=== PATIENT | male | born 1960 | race Two or more races ===

== ENCOUNTER 2018-06-10 06:44 | Inpatient (IN) | payer OTHER, MEDICAID ==
[~2018-06-10] VITALS: Ht 172.7 cm; Wt 103.2 kg
[2018-06-10] VITALS (8 sets, daily range): BP systolic 103–131; BP diastolic 56–75
[2018-06-10] MEDS ORDERED: ATOR40TA70 MT (08:10)
[2018-06-10] MEDS ORDERED: METO-539 PO (08:10)
[2018-06-10] MEDS ORDERED: ASPI-1159 MT (08:10)
[2018-06-10] MEDS ORDERED: IODIXANOL 320MG/ML 100 ML BOTTLE IV ONE ×2 (08:18→09:35)
[2018-06-10] MEDS ORDERED: LIDOCAINE HCL 1% 20ML VIAL (Pyxis) INJ ONE (08:18)
[2018-06-10] MEDS ORDERED: MIDAZOLAM HCL 2 MG/2 ML VIAL ONE ×2 (08:25→09:10)
[2018-06-10] MEDS ORDERED: FENTANYL CITRATE/PF 50MCG/ML 2ML VIAL ONE (08:25)
[2018-06-10] MEDS ORDERED: IOHEXOL-300 100 ML BOTTLE ONE (09:08)
[2018-06-10] MEDS ORDERED: ASPIRIN 325MG TABLET ONE (10:12)
[2018-06-10] MEDS ORDERED: CLOPIDOGREL 75MG TABLET ONE (10:12)
[2018-06-10] MEDS ORDERED: ONDANSETRON HCL 4MG/2ML INJ IV PRN (10:15)
[2018-06-10] MEDS ORDERED: ATROPINE SULFATE 1MG/10ML SYR IV PRN (10:15)
[2018-06-10] MEDS ORDERED: NICARDIPINE 100MCG/ML 10ML VIAL (CATH LAB) IV ONE (14:39)
[2018-06-10] MEDS ORDERED: HEPARIN SODIUM 1,000 UNIT/1ML VIAL IV ONE (14:39)
[2018-06-10] MEDS ORDERED: NITROGLYCERIN 50MCG/ML 10ML VIAL (CATH LAB) IV ONE (14:39)
[2018-06-10] MEDS: METOPROLOL TARTRATE 25MG TABLET PO SCH (20:44)
[2018-06-10] MEDS ORDERED: ATORVASTATIN CALCIUM 40MG TABLET PO SCH (21:00)
[2018-06-10] MEDS: ACETAMINOPHEN 325MG TABLET PO PRN (23:46)
[2018-06-11] VITALS (7 sets, daily range): BP systolic 95–147; BP diastolic 50–91
[2018-06-11 06:48] LABS: BASOPHILS % 0.5 % (0.0-2.0); HEMATOCRIT. 45.6 % (42.0-52.0); HEMOGLOBIN. 15.8 g/dL (14.0-18.0); LYMPHOCYTES % 15.5 % (20.0-50.0); MEAN CORPUSCULAR HEMOGLOBIN 30.9 pg (28.0-32.0); MEAN CORPUSCULAR VOLUME 89.1 fL (80.0-94.0); MEAN PLATELET VOLUME 8.5 fl (7.4-10.4); MONOCYTES % 8.1 % (2.0-8.0); NEUTROPHILS % 73.9 % (40.0-76.0); PLATELET 144 x1000/uL (130-400); RED BLOOD CELL COUNT 5.11 mill/uL (4.7-6.1); RED CELL DISTRIBUTION WIDTH 12.6 % (11.6-14.6)
[2018-06-11 06:58] LABS: CHLORIDE 108 mEq/L (98-107)
[2018-06-11 07:07] LABS: LDL CHOLESTEROL 80 mg/dL (5-100)
[2018-06-11 07:09] LABS: HDL CHOLESTEROL 36 mg/dL (40-59)
[2018-06-11] MEDS ORDERED: CLOPIDOGREL 75MG TABLET PO SCH (09:00)
[2018-06-11] MEDS ORDERED: ASPIRIN 325MG TABLET PO SCH (09:00)
[2018-06-11] MEDS: METOPROLOL TARTRATE 25MG TABLET PO SCH (09:06)
[2018-06-11] MEDS: ACETAMINOPHEN 325MG TABLET PO PRN (09:08)
== END 2018-06-11 12:30 | disposition home or self-care (01) | DRG 175 ==
LOC: CCL 06:44 → 3WST 06:45
PROVIDERS: ADMIT Specialist; ATTEND Specialist
PROC: 4A023N7 Measurement of Cardiac Sampling and Pressure, Left Heart, Percutaneous Approach (ICD-10-PCS; principal; 2018-06-10)
PROC: 027034Z Dilation of Coronary Artery, One Artery with Drug-eluting Intraluminal Device, Percutaneous Approach (ICD-10-PCS; 2018-06-10)
PROC: B2111ZZ Fluoroscopy of Multiple Coronary Arteries using Low Osmolar Contrast (ICD-10-PCS; 2018-06-10)
PROC: B2151ZZ Fluoroscopy of Left Heart using Low Osmolar Contrast (ICD-10-PCS; 2018-06-10)
PROC: 4A033BC Measurement of Arterial Pressure, Coronary, Percutaneous Approach (ICD-10-PCS; 2018-06-10)
DX: T82.855A Stenosis of coronary artery stent, initial encounter (principal); I25.82 Chronic total occlusion of coronary artery; I25.110 Atherosclerotic heart disease of native coronary artery with unstable angina pectoris; E78.5 Hyperlipidemia, unspecified; I10 Essential (primary) hypertension; Y83.8 Other surgical procedures as the cause of abnormal reaction of the patient, or of later complication, without mention of misadventure at the time of the procedure; Y92.89 Other specified places as the place of occurrence of the external cause
CPT/HCPCS: 36415; 80048; 80061; 83036; 83735; 85347; 92928; 93005; 93458; 93571; C1725; C1769; C1874; C1887; C1893; J1644; J2250; J3010; J3490; Q9967